=== PATIENT | female | born 1995 | race Caucasian/White ===

== ENCOUNTER 2019-11-07 14:35 | Emergency (ER) | payer OTHER, MEDICAID, SELFPAY ==
--- NOTE | ~2019-11-07 | XR_ITS ---
EXAMINATION: XR chest 2V EXAM DATE: 11/07/2019 15:25 INDICATION: Cough, shortness of breath, weakness. TECHNIQUE: Frontal and lateral projections of the chest obtained and reviewed. There is no prior romeo dy for comparison. FINDINGS: The lungs are clear. There are no pleural effusions. The cardiomediastinal silhouette is within normal limits. There is no pneumothorax suspected. The bones and soft tissues are unremarkab le. IMPRESSION: Unremarkable chest x-ray exam. Reviewed, dictated and finalized at location B. [employer]
[2019-11-07 15:00] VITALS: BP 139/78; PULSE 114; RESP 18; TEMP 36.9; O2SAT 100
[2019-11-07 15:13] LABS: Basophils Absolute Auto 0.1 K/mm3 (0.0-0.1); Basophils Percent Auto 0.6 % (0.2-1.2); Eosinophils Absolute Auto 0.2 K/mm3 (0-0.3); Eosinophils Percent Auto 2.7 % (0-4.4); Hematocrit 42.5 % (37.0-47.0); Hemoglobin 13.6 g/dL (12.0-15.0); Immature Granulocyte Absolute 0.01 K/mm3 (0.00-0.031); Immature Granulocyte Percent A 0.1 % (0-0.5); Lymphocytes Percent Auto 24.5 % (18.3-44.2); Mean Corpuscular Hemoglobin 27.6 pg (26-34); Mean Corpuscular Volume 86.2 fl (80-100); Mean Platelet Volume 10.2 fl (7.4-10.4); Monocytes Absolute Auto 0.6 K/mm3 (0.1-0.6); Monocytes Percent Auto 7.6 % (2.6-8.5); Neutrophils Percent Auto 64.5 % (45.5-73.1); Platelet Count Result 254 k/mm3 (150-375); Red Blood Count 4.93 M/mm3 (4.2-5.4); Red Cell Distribution Width 12.7 % (11.5-14.5); White Blood Count 7.7 K/mm3 (4.5-10.0)
[2019-11-07 15:27] LABS: Alanine Aminotransferase 13 U/L (4-35); Albumin Level 4.8 g/dL (3.5-5.1); Alkaline Phosphatase 70 U/L (38-126); Aspartate Amino Transferase 17 U/L (14-36); Bilirubin,Total 0.5 mg/dL (0.2-1.3); Blood Urea Nitrogen 9 mg/dL (7-17); Calcium 9.7 mg/dL (8.4-10.2); Carbon Dioxide 25 mmol/L (22-30); Chloride 104 mmol/L (98-107); Estimated CRCL calculation 96 ml/min; Estimated Glomerular Filt Rate > 60; Glucose 102 mg/dL (65-105); Potassium 3.9 mmol/L (3.4-5.0); Sodium 141 mmol/L (137-145)
[2019-11-07 15:28] VITALS: BP 119/79; PULSE 93; PULSE 94; RESP 18; O2SAT 98
--- NOTE | 2019-11-07 15:38 | ED.GENADULT ---
HPI - General Adult General Chief complaint: Unspecified <Hebert Copeland PA-C - Last Filed: 11/07/19 16:49> Stated complaint: multiple complaints <Hebert Copeland PA-C - Last Filed: 11/07/19 16:49> Time Seen by Provider: 11/07/19 15:17 <Hebert Copeland PA-C - Last Filed: 11/07/19 16:49> Source: patient <Hebert Copeland PA-C - Last Filed: 11/07/19 16:49> Mode of arrival: ambulatory <Hebert Copeland PA-C - Last Filed: 11/07/19 16:49> Limitations: no limitations <Hebert Copeland PA-C - Last Filed: 11/07/19 16:49> History of Present Illness HPI narrative: Patient is a 23-year-old female who presents to emergency department for evaluation of feeling fatigued and weak with tingling in the extremities and shortness of breath noting that the symptoms started last evening has had a similar occurrence last year but was unsure as to the etiology. On arrival patient denies any pain is in the room in no distress symptoms worsen with activity <Hebert Copeland PA-C - Last Filed: 11/07/19 16:49> Related Data Allergies/adverse reactions: Allergies Allergy/AdvReac Type Severity Reaction Status Date / Time No Known Allergies Allergy Mild Verified 08/30/19 19:34 <Hebert Copeland PA-C - Last Filed: 11/07/19 16:49> Review of Systems Review of Systems: All systems reviewed & are unremarkable except as noted in HPI and below <Hebert Copeland PA-C - Last Filed: 11/07/19 16:49> PMFSH Social History Social History: Social History Gender identity (if verbalized by the patient): Female <Hebert Copeland PA-C - Last Filed: 11/07/19 16:49> Exam Narrative: Exam Narrative: GENERAL: Well-appearing, well-nourished, and in no acute distress. HEAD: Normocephalic, atraumatic. EYES: PERRLA and EOMI. ENT: Nares clear, no rhinorrhea or epistaxis. Mucous membranes moist. Oropharynx without tonsillar hypertrophy exudate or other lesions. Bilateral TMs pearly taylor nonbulging CHEST: Clear to auscultation. No respiratory distress. No wheezes rales or rhonchi HEART: Regular rate and rhythm. No murmur heard. Normal peripheral pulses. ABDOMEN: Soft, nontender, nondistended EXTREMITIES: Normal range of motion. No edema. SKIN: Warm, dry, no rash. NEURO: No focal deficits. Alert and oriented x3. Cranial nerves II through XII grossly intact. Normal speech PSYCH: Normal mood and affect. <Hebert Copeland PA-C - Last Filed: 11/07/19 16:49> Course Course Emergency Course: Patient in the room in no distress aware of case findings treatment plan and diagnosis <Hebert Copeland PA-C - Last Filed: 11/07/19 16:49> Vital Signs Vital signs: Vital Signs Temperature 98.4 F 11/07/19 15:00 Pulse Rate 114 H 11/07/19 15:00 Respiratory Rate 18 11/07/19 15:00 Blood Pressure 139/78 11/07/19 15:00 Pulse Oximetry 100 11/07/19 15:00 Temperature 98.4 F 11/07/19 15:00 Pulse Rate 98 11/07/19 17:25 Respiratory Rate 18 11/07/19 17:25 Blood Pressure 116/75 11/07/19 17:25 Pulse Oximetry 100 11/07/19 17:25 <Hebert Copeland PA-C - Last Filed: 11/07/19 16:49> Vital Signs Temperature 98.4 F 11/07/19 15:00 Pulse Rate 114 H 11/07/19 15:00 Respiratory Rate 18 11/07/19 15:00 Blood Pressure 139/78 11/07/19 15:00 Pulse Oximetry 100 11/07/19 15:00 Temperature 98.4 F 11/07/19 15:00 Pulse Rate 98 11/07/19 17:25 Respiratory Rate 18 11/07/19 17:25 Blood Pressure 116/75 11/07/19 17:25 Pulse Oximetry 100 11/07/19 17:25 <Khushi Low MD - Last Filed: 11/07/19 17:58> Medical Decision Making MDM Narrative Medical decision making narrative: Patient in the room afebrile nontoxic-appearing no distress felt appropriate for discharge home for further evaluation on outpatient basis unsure as to the etiology of the patient's fatigue advised to follow with primary c
[2019-11-07 16:04] LABS: Add Urine Microscopic? YES; Appearance Urine Cloudy (Clear); Bacteria Urine 3+ /hpf; Bilirubin Urine Negative (Negative); Blood Urine Negative (Negative); Color Urine Straw (Yellow); Glucose Urine UA Negative (Negative); Ketones Urine Negative (Negative); Leukocyte Esterase Ur Negative LEU/UL (Negative); Mucus Urine Rare /lpf; Nitrate Urine Negative (Negative); Protein Urine Negative (Negative); Specific Grav Ur 1.011 (1.001-1.035); Squamous Epithelial Cell Urine Many /hpf (Few); Urobilinogen Urine Negative mg/dL (<2.0)
[2019-11-07] MEDS: SODIUM CHLORIDE 0.9% IV 1,000 ML 999 ML IV CONT (16:04)
[2019-11-07 16:10] LABS: Amphetamine Screen Urine Negative (Negative); Barbiturate Screen Urine Negative (Negative); Benzodiazepines Screen Urine Negative (Negative); Cannabinoid Screen Urine Negative (Negative); Cocaine Screen Urine Negative (Negative); Methadone Screen Urine Negative (Negative); Opiate Screen Urine Negative (Negative); Phencyclidine Screen Urine Negative (Negative)
[2019-11-07 16:12] LABS: Blood Urea Nitrogen 9 mg/dL (7-17); Calcium 9.6 mg/dL (8.4-10.2); Carbon Dioxide 25 mmol/L (22-30); Chloride 103 mmol/L (98-107); Estimated CRCL calculation 96 ml/min; Estimated Glomerular Filt Rate > 60; Ethanol < 10 mg/dL (<10); Glucose 114 mg/dL (65-105); Potassium 3.9 mmol/L (3.4-5.0); Sodium 141 mmol/L (137-145)
[2019-11-07 16:15] VITALS: BP 128/82; PULSE 84; RESP 17; O2SAT 98
[2019-11-07 16:17] LABS: D Dimer 0.25 ug/mL (<0.48)
[2019-11-07 16:58] VITALS: BP 112/78; BP 123/79; BP 126/86; PULSE 102; PULSE 94; PULSE 97
[2019-11-07 17:25] VITALS: BP 116/75; PULSE 98; RESP 18; O2SAT 100
== END 2019-11-07 17:47 | disposition home or self-care (01) ==
PROVIDERS: Emergency Medicine; Emergency Medicine Emergency Medical Services; Emergency Provider General Practice
DX: R53.83 Other fatigue (principal)
CPT/HCPCS: 36415; 71046; 80048; 80053; 80307; 81001; 81025; 85025; 85380; 99283; J7030